=== PATIENT | male | born 1975 | race American Indian/Alaskan Native ===

== ENCOUNTER 2018-08-31 08:46 | Emergency (ER) | payer OTHER ==
[2018-08-31 09:38] VITALS: BP 117/84
--- NOTE | 2018-08-31 10:10 | XRay Report ---
ROUTINE CHEST, TWO VIEWS: HISTORY: Fever, cough. The trachea, heart, mediastinal contour, lung phelan and bony thorax are unremarkable. IMPRESSION: Unremarkable chest x-ray.
--- NOTE | 2018-08-31 10:35 | Emergency Department Report ---
Minor Respiratory - HPI Chief Complaint: Upper Respiratory Infection Stated Complaint: FLU SYMPTOMS Time Seen by Provider: 08/31/18 10:31 Duration: 4 Days Pain Location: Throat Severity: mild Minor Respiratory: Yes Rhinorrhea, Yes Sore Throat, Yes Able to Tolerate Fluids, Yes Cough, No Ear Pain, No Sick Contacts, No Hemoptysis, No Chest Pain, No Shortness of Breath, No Fever Other History: Patient is a 43-year-old -[place] male who comes to the ER today with his girlfriend who is also sick. He is complaining of a 4 day history of upper respiratory signs and symptoms including a cough and sore throat. He is nontoxic ambulatory and afebrile on admission. ED Review of Systems ROS: Stated complaint: FLU SYMPTOMS Other details as noted in HPI Comment: All other systems reviewed and negative Constitutional: see HPI Eyes: denies: eye pain ENT: as per HPI, throat pain Respiratory: see HPI, cough Cardiovascular: denies: palpitations Endocrine: denies: flushing Gastrointestinal: denies: nausea Genitourinary: denies: dysuria Skin: denies: as per HPI, lesions Neurological: denies: headache Psychiatric: denies: anxiety Hematological/Lymphatic: denies: as per HPI ED Past Medical Hx - Past Medical History Previous Medical History?: Yes Hx Kidney Stones: Yes Additional medical history: neck pain - Surgical History Past Surgical History?: No - Social History Smoking Status: Current Every Day Smoker Substance Use Type: Marijuana Minor Respiratory Exam - Exam General: Vital signs noted. No distress. Alert and acting appropriately. HEENT: Yes Pharyngeal Erythema, Yes Moist Mucous Membranes, Yes Rhinorrhea, No Pharyngeal Exudates, No Conjuctival Injection, No Frontal Tenderness, No Maxillary Tenderness Ear: Neither TM Bulge, Neither TM Erythema, Neither EAC Pain, Neither EAC Discharge Neck: Yes Supple, No Adenopathy Lungs: Yes Good Air Exchange, No Wheezes, No Ronchi, No Stridor, No Cough, No Labored Respirations, No Retractions, No Use of Accessory Muscles, No Other Abn ormal Lung Sounds Heart: Yes Regular, No Murmur Abdomen: Yes Normal Bowel Sounds, No Tenderness, No Peritoneal Signs Skin: No Rash, No Edema Neurologic: Alert and oriented, no deficits. Musculoskeletal: Unremarkable. ED Course Vital Signs 08/31/18 09:34 Temperature 98 F Pulse Rate 78 Respiratory 20 Rate Blood Pressure 117/84 O2 Sat by Pulse 99 Oximetry ED Medical Decision Making - Radiology Data Radiology results: report reviewed, image reviewed interpreted by me: SIMPLE URTI Critical care attestation.: If time is entered above; I have spent that time in minutes in the direct care of this critically ill patient, excluding procedure time. ED Disposition Clinical Impression: URTI (acute upper respiratory infection), Pharyngitis Disposition: TO HOME OR SELFCARE Is pt being admited?: No Does the pt Need Aspirin: No Condition: Stable Instructions: Upper Respiratory Infection (ED) Additional Instructions: MEDS ORDERED TODAY UNTIL GONE HYDRATE WELL FOLLOW UP PCP IF PERSISTS MOTRIN OR TYLENOL FOR FEVER OR PAIN DIET TOLERATED Referrals: EMIL WALLIS MD [Primary Care Provider] - 3-5 Days Time of Disposition: 10:32
== END 2018-08-31 10:58 | disposition home or self-care (01) ==
LOC: ED 08:46
DX: J06.9 Acute upper respiratory infection, unspecified (principal); J02.9 Acute pharyngitis, unspecified; F17.200 Nicotine dependence, unspecified, uncomplicated; F12.10 Cannabis abuse, uncomplicated; Z87.442 Personal history of urinary calculi
CPT/HCPCS: 71046

== ENCOUNTER 2018-10-06 03:45 | Emergency (ER) | payer OTHER ==
--- NOTE | 2018-10-06 07:41 | Emergency Department Report ---
Minor Respiratory - HPI Chief Complaint: Upper Respiratory Infection Stated Complaint: NASAL CONGESTION, SINUS PRESSURE, COUGH Time Seen by Provider: 10/06/18 07:19 Pain Location: Facial, Nose Severity: mild Minor Respiratory: Yes Able to Tolerate Fluids, Yes Cough, No Rhinorrhea, No Sore Throat, No Ear Pain, No Sick Contacts, No Hemoptysis, No Chest Pain, No Shortness of Breath, No Fever Other History: 43-year-old male presents complaining of nasal congestion, cough, sore throat productive cough medicine going on for weeks. Patient states symptoms didn't worsen and can better. Patient denies fever assess chills or shortness of breath/dizziness headache ED Review of Systems ROS: Stated complaint: NASAL CONGESTION, SINUS PRESSURE, COUGH Other details as noted in HPI Comment: All other systems reviewed and negative ED Past Medical Hx - Past Medical History Previous Medical History?: Yes Hx Kidney Stones: Yes Additional medical history: neck pain - Surgical History Past Surgical History?: Yes Additional Surgical History: kidney stones - Social History Smoking Status: Current Every Day Smoker Substance Use Type: None - Medications Home Medications: Home Medications Medication Instructions Recorded Confirmed Last Taken Type Amoxicillin 500 mg PO BID #20 capsule 08/31/18 Unknown Rx Azithromycin [Zithromax] 250 mg PO QDAY #6 tablet 10/06/18 Unknown Rx Loratadine [Claritin] 10 mg PO DAILY #30 tablet 10/06/18 Unknown Rx guaiFENesin [Robitussin] 200 mg PO Q6HR #30 tablet 10/06/18 Unknown Rx Minor Respiratory Exam - Exam General: Vital signs noted. No distress. Alert and acting appropriately. HEENT: Yes Moist Mucous Membranes, Yes Frontal Tenderness, No Pharyngeal Erythema, No Pharyngeal Exudates, No Rhinorrhea, No Conjuctival Injection, No Maxillary Tenderness Ear: Neither TM Bulge, Neither TM Erythema, Neither EAC Pain, Neither EAC Discharge Neck: Yes Supple, No Adenopathy Lungs: Yes Good Air Exchange, No Wheezes, No Ronchi, No Stridor, No Cough, No Labored Respirations, No Retractions, No Use of Accessory Muscles, No Other Abnormal Lung Sounds Heart: Yes Regular, No Murmur Abdomen: Yes Normal Bowel Sounds, No Tenderness, No Peritoneal Signs Skin: No Rash, No Edema Neurologic: Alert and oriented, no deficits. Musculoskeletal: Unremarkable. ED Course Vital Signs 10/06/18 03:50 Temperature 97.8 F Pulse Rate 94 H Respiratory 18 Rate Blood Pressure 124/87 [Right] O2 Sat by Pulse 99 Oximetry ED Medical Decision Making - Medical Decision Making 43-year-old male presents with upper sinusitis Vital signs are stable patient has no acute distress Discussed the patient to follow up with primary care doctor. Discussed to take medications as prescribed. Discussed the patient to avoid being in pollen, dust mite which make his symptoms worse. Patient understands instructions and will follow-up. Critical care attestation.: If time is entered above; I have spent that time in minutes in the direct care of this critically ill patient, excluding procedure time. ED Disposition Clinical Impression: Sinusitis, Upper respiratory infection Disposition: DC- TO HOME OR SELFCARE Is pt being admited?: No Does the pt Need Aspirin: No Condition: Stable Instructions: Sinusitis (ED), Upper Respiratory Infection (ED) Additional Instructions: Make sure to follow up with the primary care physician as discussed. Take all your medications as you've been prescribed. Avoid pollen, dust mites to be around the house If you have any worsening symptoms or develop new symptoms please return to ED immediately. Prescriptions: Loratadine [Claritin] 10 mg PO DAILY #30 tablet guaiFENesin [Robitussin] 200 mg PO Q6HR #30 tablet Azithromycin [Zithromax] 250 mg PO QDAY #6 tablet [facility] [Primary Care Provider[facility] - 3-5 Days Forms: Work/School Release Form(ED) Time of Disposition: 07:41
[2018-10-06 08:03] VITALS: BP 122/84
== END 2018-10-06 08:02 | disposition home or self-care (01) ==
LOC: ED 03:45
DX: J01.10 Acute frontal sinusitis, unspecified (principal); F17.200 Nicotine dependence, unspecified, uncomplicated; Z87.442 Personal history of urinary calculi; Z88.5 Allergy status to narcotic agent
CPT/HCPCS: 99282

== ENCOUNTER 2021-07-21 08:17 | Emergency (ER) | payer OTHER ==
[2021-07-21] MEDS ORDERED: predniSONE 20 MG TAB PO ONE (09:12)
--- NOTE | 2021-07-21 10:00 | Emergency Department Report ---
ED General Adult HPI - General Chief complaint: Sore Throat Stated complaint: SORE THROAT/COUGH Time Seen by Provider: 07/21/21 08:32 Source: patient Mode of arrival: Ambulatory Limitations: No Limitations - History of Present Illness Initial comments: 46-year-old -[place] male patient presents with complaints of sore throat for the past 3 days. He rates his pain as 8/10 in severity and describes it as stabbing and scratching. Pain is worsening per patient. He states he has been taking his mother's leftover amoxicillin 500 mg three times daily without improvement in his symptoms. He denies any fever/chills/sweats, cough, chest pain, or rashes. NKDA per patient. No other past medical history per patient Severity scale (0 -10): 7 - Related Data Previous Rx's Medication Instructions Recorded Last Taken Type Amoxicillin 500 mg PO BID #20 capsule 08/31/18 Unknown Rx Azithromycin [Zithromax] 250 mg PO QDAY #6 tablet 10/06/18 Unknown Rx Loratadine (Nf) [Claritin] 10 mg PO DAILY #30 tablet 10/06/18 Unknown Rx guaiFENesin [Robitussin] 200 mg PO Q6HR #30 tablet 10/06/18 Unknown Rx Loratadine [Claritin] 10 mg PO BID 7 Days #14 tab 07/21/21 Unknown Rx predniSONE [Deltasone] 20 mg PO BID 3 Days #6 tab 07/21/21 Unknown Rx Allergies Allergy/AdvReac Type Severity Reaction Status Date / Time ibuprofen [From Motrin] Allergy Hives Verified 09/29/14 09:20 ED Review of Systems ROS: Stated complaint: SORE THROAT/COUGH Other details as noted in HPI Constitutional: denies: chills, fever, malaise Respiratory: denies: cough, shortness of breath Genitourinary: denies: frequency Skin: denies: rash, lesions, change in color Hematological/Lymphatic: denies: swollen glands ED Past Medical Hx - Past Medical History Previous Medical History?: Yes Hx Kidney Stones: Yes Additional medical history: neck pain. RIGHT INGUINAL HERNIA - Surgical History Past Surgical History?: Yes Additional Surgical History: kidney stones - Social History Smoking Status: Current Every Day Smoker Substance Use Type: None - Medications Home Medications: Home Medications Medication Instructions Recorded Confirmed Last Taken Type Amoxicillin 500 mg PO BID #20 capsule 08/31/18 Unknown Rx Azithromycin [Zithromax] 250 mg PO QDAY #6 tablet 10/06/18 Unknown Rx Loratadine (Nf) [Claritin] 10 mg PO DAILY #30 tablet 10/06/18 Unknown Rx guaiFENesin [Robitussin] 200 mg PO Q6HR #30 tablet 10/06/18 Unknown Rx Loratadine [Claritin] 10 mg PO BID 7 Days #14 tab 07/21/21 Unknown Rx predniSONE [Deltasone] 20 mg PO BID 3 Days #6 tab 07/21/21 Unknown Rx ED Physical Exam - General Limitations: No Limitations General appearance: alert, in no apparent distress - Head Head exam: Present: atraumatic, normocephalic - Eye Eye exam: Present: normal appearance - ENT ENT exam: Present: normal orophraynx - Expanded ENT Exam Expanded Mouth exam: Absent: drooling, trismus, muffled voice Throat exam: Negative: normal inspection, tonsillar erythema - Neck Neck exam: Present: normal inspection. Absent: lymphadenopathy - Respiratory Respiratory exam: Present: normal lung sounds bilaterally. Absent: respiratory distress - Cardiovascular Cardiovascular Exam: Present: regular rate, normal heart sounds - Neurological Exam Neurological exam: Present: alert, oriented X3 - Psychiatric Psychiatric exam: Present: normal affect, normal mood - Skin Skin exam: Present: warm, dry, intact, normal color. Absent: rash ED Course Vital Signs 07/21/21 07/21/21 08:22 08:23 Temperature 97.9 F 97.9 F Pulse Rate 78 Respiratory 15 Rate Blood Pressure 136/95 O2 Sat by Pulse 99 Oximetry ED Medical Decision Making - Medical Decision Making 46-year-old -[place] male patient presents with complaints of sore throat for the past 3 days. He rates his pain as 8/10 in severity and describes it as stabbing and scratching. Pain is worsening per patient. He states he has been taking his mother's leftover amoxicillin 500 mg three times daily without improvement in his symptoms. He denies any fever/chills/sweats, cough, chest pain, or rashes. NKDA per patient. No other past medical history per patient Rapid strep is negative. Will treat for viral pharyngitis. Informed patient to follow-up on throat cultures in 3 days. He is otherwise well-appearing, his vitals are within normal limits, he is stable for discharge home. Discussed signs and symptoms that should prompt immediate return to the ED with patient verbalized understanding. He is to follow-up with his primary care doctor in 3 to 5 days Critical care attestation.: If time is entered above; I have spent that time in minutes in the direct care of this critically ill patient, excluding procedure time. ED Disposition Clinical Impression: Acute pharyngitis Disposition: HOME / SELF CARE / HOMELESS Is pt being admited?: No Condition: Stable Instructions: Pharyngitis, [id number] Prescriptions: Loratadine [Claritin] 10 mg PO BID 7 Days #14 tab predniSONE [Deltasone] 20 mg PO BID 3 Days #6 tab Referrals: PRIMARY CARE, [Primary Care Provider] - 3-5 Days [facility] [Provider Group] - 3-5 Days Forms: Work/School Release Form(ED)
[2021-07-21 10:53] VITALS: BP 127/87
== END 2021-07-21 10:52 | disposition home or self-care (01) ==
LOC: ED 08:17
DX: J02.9 Acute pharyngitis, unspecified (principal); F17.200 Nicotine dependence, unspecified, uncomplicated; Z79.899 Other long term (current) drug therapy; Z98.890 Other specified postprocedural states; Z91.09 Other allergy status, other than to drugs and biological substances
CPT/HCPCS: 87116; 87430; 99283

== ENCOUNTER 2021-11-12 12:30 | Emergency (ER) | payer OTHER ==
[2021-11-12 13:33] VITALS: BP 112/84
== END 2021-11-12 16:08 | disposition left against medical advice (07) ==
LOC: ED 12:30
DX: R10.31 Right lower quadrant pain (principal); Z53.21 Procedure and treatment not carried out due to patient leaving prior to being seen by health care provider